=== PATIENT | female | born 1975 | race Native Hawaiian/Other Pacific Islander ===

== ENCOUNTER 2017-08-02 21:34 | Emergency (ER) | payer MEDICAID ==
[~2017-08-02] VITALS: Ht 165.1 cm; Wt 75.0 kg
[~2017-08-02 21:34] MED LIST: IBUP600 PO
[2017-08-02 21:37] VITALS: BP 171/75; PULSE 73; RESP 16; TEMP 98.3; O2SAT 100
[2017-08-02] MEDS ORDERED: METH5TAB4 PO (22:01)
[2017-08-02] MEDS ORDERED: advil PO (22:07)
--- NOTE | 2017-08-02 22:16 | PD ---
HPI Chief Complaint: Cold / Flu Symptoms Time Seen by Provider: 22:00 Travel History International Travel<30 days: No Contact w/Intl Traveler<30days: No Traveled to known affect area: No History of Present Illness HPI Patient comes in complaining of bilateral maxillary sinus pain that is burning like in nature that is worse with deep inspiration through her nose along with feeling water in her left ear ongoing for a month. Patient denies anything making this better. Patient states 2 days ago began having right-sided throat pain that she describes is a stabbing like in nature without radiation. Pain is worse with swallowing. Denies anything making it better. Patient denies any known fevers, nausea, vomiting, chest pain, shortness breath, difficulty swallowing, cough, abdominal pain, loss or change in bowel or bladder, numbness or tingling anywhere, or headaches. Patient states that she works at [employer] is around a lot of dust. Patient reports seasonal allergies. Patient denies taking anything for this. H&P is obtained with the assistance of her son as patient is [place] speaking, but able to understand some Ugandan and communicate with some Ugandan. Patient was offered hospitals interpreting surfaces [place] but is declining as she is comfortable with her son (who appears to be in his late teens or early 20s) interpreting for her. [facility] Past Medical History Hypertension: Yes (r/t thyroid) Thyroid Disease: Yes (hyper) Tetanus Vaccination: Never Vaccinated Influenza Vaccination: Yes ?: Not LMP: 07/09/17 : 3 Para: 3 Past Surgical History Surgical History: No Previous Surgery Social History Alcohol Use: No Tobacco Use: No Substance Use: No Allergies-Medications (Allergen,Severity, Reaction): Coded Allergies: No Known Allergies (Unverified Adverse Reaction, Unknown, 08/02/17) Reported Meds & Prescriptions Reported Meds & Active Scripts Active Amoxicillin 875 Mg Tab 875 Mg PO BID 10 Days Reported [advil ] PO Methimazole 5 Mg Tab 5 Mg PO DAILY Review of Systems Except as stated in HPI: all other systems reviewed are Neg Physical Exam Narrative GENERAL: Well-developed, overly nourished, in no acute distress, and non-ill appearing. SKIN: Focused skin assessment warm and dry. HEAD: Atraumatic. Normocephalic. EYES: Pupils equal and round. EOMI. No scleral icterus. No injection or drainage. ENT: No nasal bleeding or discharge. Mucous membranes pink and moist. Tympanic membranes are pearly camejo bilaterally. Posterior pharynx nonerythematous without exudate. Uvula is midline. Postnasal drip noted. Patient reports tenderness bilateral maxillary sinus. NECK: Trachea midline. No cervical lymphadenopathy. Supple. No nuclear rigidity. CARDIOVASCULAR: Regular rate and rhythm. No murmur appreciated. RESPIRATORY: No accessory muscle use. No respiratory distress. Clear to auscultation. Breath sounds equal bilaterally. MUSCULOSKELETAL: No obvious deformities. No clubbing. No cyanosis. No edema. Full range of motion. NEUROLOGICAL: Awake and alert. No obvious cranial nerve deficits. Motor grossly within normal limits. Normal speech. PSYCHIATRIC: Appropriate mood and affect; insight and judgment normal. Data Data Last Documented VS Vital Signs Date Time Temp Pulse Resp B/P (MAP) Pulse Ox O2 Delivery O2 Flow Rate FiO2 08/02/17 22:19 08/02/17 22:03 Room Air 08/02/17 21:37 98.3 73 16 100 Orders Orders Ed Discharge Order (08/02/17 22:17) MDM Medical Decision Making Medical Screen Exam Complete: Yes Emergency Medical Condition: Yes Differential Diagnosis Otitis media, otitis externa, sinusitis, allergies, pharyngitis, upper respiratory infection, other Narrative Course Patient looks great, non-ill appearing. The patient is tolerating fluids and is well hydrated. Appears acute sinusitis. No clinical evidence by history or evaluation to suspect meningitis and/or sepsis. There was no evidence to suggest deep abscess or cavernous sinus involvement. I discussed with the patient, diagnosis, plan of care, medications and to follow up with the patients primary physician. The patient was instructed to return if the worsens in anyway, especially if not tolerating fluids, increased sinus pain or swelling , headaches, persistent fever, difficulty swallowing or breathing, or as needed. The patient agreed with plan. Patient in no obvious distress upon re-evaluation. Patient was asked if they wanted to speak to my attending, which the patient did not wish to do at this time. Any questions/concerns in reference to patient diagnosis/condition discussed and clarified prior to patient's discharge. Reinforced sheer importance of close follow up with patient's primary physician or primary care clinic. Instructed patient to return to ED immediately, if symptoms return/ worsen. Patient showed understanding of above instructions. Further instructions and recommendations were detailed in discharge paperwork. Patient ambulated without difficulty out of ED at discharge. Diagnosis Primary Impression: Sinusitis Qualified Codes: J01.00 - Acute maxillary sinusitis, unspecified Referrals: [facility] Patient Instructions: General Instructions, Sinusitis (ED) Additional Instructions: Follow-up with your primary care physician next week for reevaluation. Take all medication as prescribed. Use [id number] Claritin or Zyrtec for symptomatic relief. Follow instructions on the packaging. Return to the emergency department if symptoms get worse. Med/Other Pt SpecificInfo: Prescription(s) given Scripts Amoxicillin (Amoxicillin) 875 Mg Tab 875 MG PO BID for Infection for 10 Days, #20 TAB 0 Refills Prov: Lakeisha Sutton DO 08/02/17 Disposition: 01 DISCHARGE HOME Condition: Stable Marquise Mims Aug 02, 2017 22:16
[2017-08-02] MEDS ORDERED: AMOX875T PO (22:17)
== END 2017-08-02 22:26 | disposition home or self-care (01) ==
LOC: NEPD 21:34
DX: J01.00 Acute maxillary sinusitis, unspecified (principal)
CPT/HCPCS: 99283